=== PATIENT | male | born 1985 | race Caucasian/White ===

== ENCOUNTER 2017-07-23 03:43 | Emergency (ER) | payer MEDICAID ==
[~2017-07-23] VITALS: Ht 170.2 cm; Wt 97.5 kg
[~2017-07-23 03:43] MED LIST: CIPR500T4 PO; IBUP-1542 PO; IBUP1TAB14
[2017-07-23 03:47] VITALS: Ht 170.2 cm; Wt 97.5 kg
[2017-07-23] MEDS ORDERED: SOD CHLORIDE 0.9% 500 ML IV STA (04:28)
[2017-07-23] MEDS ORDERED: morphine 4 MG/ML VIAL IV STA (04:28)
[2017-07-23] MEDS ORDERED: ONDANSETRON 4 MG INJ IV STA (04:28)
[2017-07-23 04:57] LABS: BASOPHILS % 0.3 % (0.0-2.0); EOSINOPHILS # 0.1 10^3/ul (0.0-0.5); EOSINOPHILS % 0.6 % (0.0-7.0); HEMATOCRIT 44.5 % (42.0-52.0); HEMOGLOBIN 15.2 g/dl (14.0-18.0); LYMPHOCYTES # 1.7 10^3/ul (0.8-2.9); LYMPHOCYTES % 18.9 % (15.0-51.0); MEAN CORPUSCULAR HEMOGLOBIN 27.7 pg (29.0-33.0); MEAN CORPUSCULAR HGB CONC 34.2 g/dl (32.0-37.0); MEAN CORPUSCULAR VOLUME 81.2 fl (82.0-101.0); MEAN PLATELET VOLUME 10.5 fl (7.4-10.4); MONOCYTE # 0.5 10^3/ul (0.3-0.9); MONOCYTES % 5.8 % (0.0-11.0); NEUTROPHILS % 73.9 % (39.0-77.0); PLATELET COUNT 200 10^3/UL (140-415); RED BLOOD COUNT 5.48 10^6/ul (4.70-6.10); RED CELL DISTRIBUTION WIDTH 13.2 % (11.5-14.5); WHITE BLOOD COUNT 8.8 10^3/ul (4.8-10.8)
[2017-07-23 05:13] LABS: ALBUMIN 4.3 g/dl (3.3-4.9); ALBUMIN/GLOBULIN RATIO 1.48; BILIRUBIN,INDIRECT 0.6 mg/dl (0-1.1); BILIRUBIN,TOTAL 0.6 mg/dl (0.2-1.3); CALCIUM 10.5 mg/dl (8.4-10.2); CREATININE 0.98 mg/dl (0.61-1.24); POTASSIUM 4.3 mmol/L (3.5-5.1); TOTAL PROTEIN 7.2 g/dl (6.1-8.1)
--- NOTE | 2017-07-23 05:18 | RADRPT ---
PROCEDURE: CT Abdomen and pelvis without contrast. CLINICAL INDICATION: Abdominal pain. TECHNIQUE: CT scan of the abdomen and pelvis was performed on a multi-detector high-resolution CT scanner. Contiguous axial images were obtained from the lung bases to the ischial tuberosities wit hout intravenous contrast. Coronal and sagittal reformatted images were also obtained. Images were reviewed on the PACS workstation. One or more of the following dose reduction techniques were used: - Automated exposure control. - Adjustment of the mA and/or kV according to patient size. - Use of iterative reconstruction technique. Exam CTD/vol = 21.31 mGy. Total exam DLP = 1386.51 mGy-cm. COMPARISON: None. FINDINGS: Evaluation of the lung bases demonstrates no pleural or parenchymal disease. Abdomen: The liver is normal in size and diffusely low in attenuation consistent with fatty infiltr ation. There is no focal mass or dilatation of the biliary tree. The gallbladder is not distended. The spleen, pancreas and bilateral adrenal glands are within normal limits. Bilateral kidneys are normal in size with no contour deforming mass identified. There is no radiopaque renal or ureteral calculus identified. There is no hydronephrosis or hydroureter. There is no retroperitoneal adeno mack. The abdominal aorta is of normal caliber. There is a tiny umbilical hernia containing fat. There is no bowel obstruction or free air. A norm al appendix is identified. There is no diverticulosis or diverticulitis. There is no ascites. Pelvis: The bladder is unremarkable. The prostate and seminal vesicles are within normal limits. There is no significant pelvic adenopathy or free fluid. Evaluation of the osseous structures demonstrates no suspicious lytic or blastic lesion. IMPRESSION: No acute abnormality identified within the abdomen and pelvis. Fatty infiltration of the liver. .Daniel Saldivar MD, MD Date Time Electronically viewed and signed by .Daniel Saldivar MD, MD on 07/23/2017 05:18 .T/
--- NOTE | 2017-07-23 05:20 | RADRPT ---
PROCEDURE: XR Chest. CLINICAL INDICATION: Abdominal pain TECHNIQUE: A single AP view of the chest was obtained. COMPARISON: None. FINDINGS: No focal airspace opacification, pleural effusion or pneumothorax is seen. The cardiomediastinal si lhouette is within normal limits for size. The osseous structures are unremarkable. IMPRESSION: Unremarkable chest x-ray. RPTAT: HH .Jayne Perez MD, MD Date Time Electronically viewed and signed by .Jayne Perez MD, on 07/23/2017 05:19 .G/
[2017-07-23 05:30] VITALS: BP 164/89; PULSE 82; RESP 16; TEMP 97.9
[2017-07-23 05:33] LABS: ADD UMIC NO; UR AMORPHOUS CRYSTAL FEW /HPF (NONE SEEN); UR ASCORBIC ACID 20 mg/dL (NEGATIVE); UR BILIRUBIN (Dip) NEGATIVE (NEGATIVE); UR BLOOD (Dip) NEGATIVE (NEGATIVE); UR CLARITY SLIGHTLY CLOUDY (CLEAR); UR COLOR YELLOW (YELLOW); UR GLUCOSE (Dip) NEGATIVE (NEGATIVE); UR KETONES (Dip) NEGATIVE (NEGATIVE); UR LEUKOCYTE ESTERASE (Dip) NEGATIVE Leu/ul (NEGATIVE); UR NITRITE (Dip) NEGATIVE (NEGATIVE); UR RBC 3 /HPF (0-5); UR SPECIFIC GRAVITY (Dip) 1.014 (1.003-1.030); UR TOTAL PROTEIN (Dip) NEGATIVE (NEGATIVE); UR UROBILINOGEN (Dip) NEGATIVE (NEGATIVE)
[2017-07-23] MEDS ORDERED: HYDR-902 PO (05:53)
[2017-07-23] MEDS ORDERED: ONDA4TAB14 PO (05:53)
--- NOTE | 2017-07-23 05:57 | ERD ---
ER Documentation Chief Complaint Date/Time DATE: 07/23/17 TIME: 05:56 Chief Complaint abd pain x 2 days. -n/v/d HPI This is a 33 mL abdominal pain for the last 2 days. No nausea vomiting or diarrhea. Pain is colicky nature no exacerbating or alleviating factors. No other current complaints ROS All systems reviewed and are negative except as per history of present illness. Medications Home Meds Active Scripts Ondansetron (Ondansetron Odt) 4 Mg Tab.rapdis, 4 MG PO Q6H Y for NAUSEA AND/OR VOMITING, #10 TAB Prov:DEA LILLY 07/23/17 Hydrocodone/Acetaminophen ([place] 10-325 Tablet) 1 Each Tablet, 1 TAB PO Q6H Y for PAIN, #20 TAB Prov:DEA LILLY. 07/23/17 Ciprofloxacin Hcl* (Ciprofloxacin Hcl*) 500 Mg Tablet, 500 MG PO BID for 10 Days , TAB Prov:JUAN R LANDIS MD 06/30/16 Ibuprofen* (Motrin*) 600 Mg Tab, 600 MG PO Q6, #20 TAB Prov:JUA NR LANDIS MD 06/30/16 Reported Medications Ibuprofen/Diphenhydramine (Advil Pm Caplet) 1 Tab Tablet 04/14/12 Allergies Allergies: Coded Allergies: No Known Allergy (Unverified , 07/23/17) PMhx/Soc History of Surgery: No Anesthesia Reaction: No Hx Neurological Disorder: No Hx Respiratory Disorders: No Hx Cardiac Disorders: No Hx Psychiatric Problems: No Hx Miscellaneous Medical Probl: No Hx Alcohol Use: No Hx Substance Use: No Hx Tobacco Use: No Physical Exam Vitals Vital Signs Date Time Temp Pulse Resp B/P Pulse Ox O2 Delivery O2 Flow Rate FiO2 07/23/17 03:47 97.5 75 20 175/86 96 Physical Exam Const: [] Head: Atraumatic Eyes: Normal Conjunctiva ENT: Normal External Ears, Nose and Mouth. Neck: Full range of motion..~ No meningismus. Resp: Clear to auscultation bilaterally Cardio: Regular rate and rhythm, no murmurs Abd: Soft, non tender, non distended. Normal bowel sounds Skin: No petechiae or rashes Back: No midline or flank tenderness Ext: No cyanosis, or edema Neur: Awake and alert Psych: Normal Mood and Affect Result Diagram: 07/23/17 0445 07/23/17 0445 Results 24 hrs Laboratory Tests Test 07/23/17 04:40 07/23/17 04:45 Urine Color YELLOW Urine Clarity SLIGHTLY CLOUDY Urine pH 7.0 Urine Specific [place] 1.014 Urine Ketones NEGATIVEmg/dL Urine Nitrite NEGATIVEmg/dL Urine Bilirubin NEGATIVEmg/dL Urine Urobilinogen NEGATIVEmg/dL Urine Leukocyte Esterase NEGATIVELeu/ul Urine Microscopic RBC 3/HPF Urine Microscopic WBC 0/HPF Urine Amorphous Crystals FEW/HPF Urine Hemoglobin NEGATIVEmg/dL Urine Glucose NEGATIVEmg/dL Urine Total Protein NEGATIVEmg/dl White Blood Count 8.810^3/ul Red Blood Count 5.4810^6/ul Hemoglobin 15.2g/dl Hematocrit 44.5% Mean Corpuscular Volume 81.2fl Mean Corpuscular Hemoglobin 27.7pg Mean Corpuscular Hemoglobin Concent 34.2g/dl Red Cell Distribution Width 13.2% Platelet Count 84360^3/UL Mean Platelet Volume 10.5fl Neutrophils % 73.9% Lymphocytes % 18.9% Monocytes % 5.8% Eosinophils % 0.6% Basophils % 0.3% Nucleated Red Blood Cells % 0.0/100WBC Neutrophils # (Manual) 6.510^3/ul Lymphocytes # 1.710^3/ul Monocytes # 0.510^3/ul Eosinophils # 0.110^3/ul Basophils # 0.010^3/ul Nucleated Red Blood Cells # 0.010^3/ul Sodium Level 140mmol/L Potassium Level 4.3mmol/L Chloride Level 104mmol/L Carbon Dioxide Level 30mmol/L Anion Gap 10 Blood Urea Nitrogen 14mg/dl Creatinine 0.98mg/dl Glucose Level 131mg/dl Calcium Level 10.5mg/dl Total Bilirubin 0.6mg/dl Direct Bilirubin 0.00mg/dl Indirect Bilirubin 0.6mg/dl Aspartate Amino Transf (AST/SGOT) 79IU/L Alanine Aminotransferase (ALT/SGPT) 160IU/L Alkaline Phosphatase 95IU/L Total Protein 7.2g/dl Albumin 4.3g/dl Globulin 2.90g/dl Albumin/Globulin Ratio 1.48 Lipase 48U/L Current Medications Medications (Trade) Dose Ordered Sig/Nabeel Route PRN Reason Start Time Stop Time Status Last Admin Dose Admin Sodium Chloride (NS) 500 ml @ 500 mls/hr Q1H STAT IV 07/23/17 04:28 07/23/17 05:27 DC 07/23/17 04:53 Morphine Sulfate (morphine) 4 mg ONCE STAT IV 07/23/17 04:28 07/23/17 04:29 DC 07/23/17 04:53 Ondansetron HCl (Zofran Inj) 4 mg ONCE STAT IV 07/23/17 04:28 07/23/17 04:29 DC 07/23/17 04:53 Procedures/MDM Medical decision-makin of abdominal pain of undifferentiated etiology. At this point clinically stable. Discharge home with pain meds. Tolerating p.o. Follow-up in 8 hours for serial abdominal exams. No evidence of surgical abdomen. Departure Diagnosis: Primary Impression: Abdominal pain Abdominal location: generalized Qualified Code: R10.84 - Generalized abdominal pain Condition: Stable Patient Instructions: Abdominal Pain DEA LILLY Jul 23, 2017 05:57
[2017-07-24] MEDS ORDERED: HYDR-906 PO (12:08)
== END 2017-07-23 06:40 | disposition home or self-care (01) ==
LOC: E/R 03:43
DX: R10.84 Generalized abdominal pain (principal)
CPT/HCPCS: 36415; 71010; 74176; 80053; 81001; 83690; 85025; 96374; 96375; J2270; J2405; J7040; Z7502; 81003

== ENCOUNTER 2017-07-24 08:56 | Emergency (ER) | payer MEDICAID ==
[~2017-07-24] VITALS: Ht 167.6 cm; Wt 96.5 kg
[~2017-07-24 08:56] MED LIST changes: +HYDR-902 PO; +ONDA4TAB14 PO
[2017-07-24 09:12] VITALS: Ht 167.6 cm; Wt 96.5 kg
[2017-07-24] MEDS ORDERED: morphine 4 MG/ML VIAL IV STA (10:22)
[2017-07-24] MEDS ORDERED: ONDANSETRON 4 MG INJ IV STA (10:22)
[2017-07-24] MEDS ORDERED: KETOROLAC 15 MG INJ IV STA (10:22)
[2017-07-24] MEDS ORDERED: SOD CHLORIDE 0.9% 1,000 ML IV STA (10:22)
--- NOTE | 2017-07-24 10:45 | ERD ---
ER Documentation Chief Complaint Date/Time DATE: 07/24/17 TIME: 10:44 Chief Complaint RLQ ABD PAIN SINCE SUNDAY W/ NAUSEA & VOMITING HPI This is a 32-year-old male presenting to the ER for the second time for the same complaint in this past week complaining of right lower quadrant abdominal pain, nausea and nonbloody nonbilious vomiting. Patient denies any fevers, diarrhea, constipation. He states that he has been taking Zofran without any relief. ROS All systems reviewed and are negative except as per history of present illness. Medications Home Meds Active Scripts Hydrocodone/Acetaminophen ([place] 5-325 Tablet) 1 Each Tablet, 1 TAB PO Q6H Y for PAIN, #7 TAB Prov:RENEE HOFFMAN PA-C 07/24/17 Ondansetron (Ondansetron Odt) 4 Mg Tab.rapdis, 4 MG PO Q6H Y for NAUSEA AND/OR VOMITING, #10 TAB Prov:DEA LILLY S. 07/23/17 Hydrocodone/Acetaminophen ([place] 10-325 Tablet) 1 Each Tablet, 1 TAB PO Q6H Y for PAIN, #20 TAB Prov:YAMILE LILLYEL S. 07/23/17 Ciprofloxacin Hcl* (Ciprofloxacin Hcl*) 500 Mg Tablet, 500 MG PO BID for 10 Days , TAB Prov:JUAN R LANDIS MD 06/30/16 Ibuprofen* (Motrin*) 600 Mg Tab, 600 MG PO Q6, #20 TAB Prov:JUAN R LANDIS MD 06/30/16 Reported Medications Ibuprofen/Diphenhydramine (Advil Pm Caplet) 1 Tab Tablet 04/14/12 Allergies Allergies: Coded Allergies: No Known Allergy (Unverified , 07/23/17) PMhx/Soc History of Surgery: Yes (HERNIA X 5YEARS) Anesthesia Reaction: No Hx Neurological Disorder: No Hx Respiratory Disorders: No Hx Cardiac Disorders: No Hx Psychiatric Problems: No Hx Miscellaneous Medical Probl: No Hx Alcohol Use: No Hx Substance Use: Yes (marijuana) Hx Tobacco Use: No Physical Exam Vitals Vital Signs Date Time Temp Pulse Resp B/P Pulse Ox O2 Delivery O2 Flow Rate FiO2 07/24/17 09:12 97.8 75 16 184/92 99 Physical Exam GENERAL: well-developed/well-nourished, in no apparent distress, non-toxic appearing HENT: NC/AT, moist mucous membranes EYES: Conjunctiva normal NECK: Supple, no lymphadenopathy PULM: CTA bilaterally, no rales, rhonchi, or wheezing heard CV: Normal S1S2, RRR, good capillary refill GI: Soft, non-distended, tender to palpation right lower quadrant Normal bowel sounds, no masses or organomegaly felt on exam No gross peritonitis, no bruits Negative Rovsing, negative Vincent, negative McBurney's point, Negative CVAT BACK: No masses EXT: No clubbing, cyanosis, or edema NEURO: Alert and Orientated SKIN: Intact, normal turgor PSYCH: Normal mood and mentation Result Diagram: 07/24/17 1058 07/24/17 1058 Results 24 hrs Laboratory Tests Test 07/24/17 10:58 White Blood Count 9.910^3/ul Red Blood Count 5.5410^6/ul Hemoglobin 15.3g/dl Hematocrit 44.9% Mean Corpuscular Volume 81.0fl Mean Corpuscular Hemoglobin 27.6pg Mean Corpuscular Hemoglobin Concent 34.1g/dl Red Cell Distribution Width 13.1% Platelet Count 19841^3/UL Mean Platelet Volume 9.9fl Neutrophils % 80.4% Lymphocytes % 14.1% Monocytes % 4.7% Eosinophils % 0.1% Basophils % 0.3% Nucleated Red Blood Cells % 0.0/100WBC Neutrophils # (Manual) 8.010^3/ul Lymphocytes # 1.410^3/ul Monocytes # 0.510^3/ul Eosinophils # 0.010^3/ul Basophils # 0.010^3/ul Nucleated Red Blood Cells # 0.010^3/ul Sodium Level 137mmol/L Potassium Level 3.6mmol/L Chloride Level 102mmol/L Carbon Dioxide Level 28mmol/L Anion Gap 11 Blood Urea Nitrogen 16mg/dl Creatinine 0.95mg/dl Glucose Level 123mg/dl Calcium Level 9.7mg/dl Total Bilirubin 0.7mg/dl Direct Bilirubin 0.00mg/dl Indirect Bilirubin 0.7mg/dl Aspartate Amino Transf (AST/SGOT) 64IU/L Alanine Aminotransferase (ALT/SGPT) 148IU/L Alkaline Phosphatase 100IU/L Total Protein 7.4g/dl Albumin 4.4g/dl Globulin 3.00g/dl Albumin/Globulin Ratio 1.46 Lipase 53U/L Current Medications Medications (Trade) Dose Ordered Sig/Nabeel Route PRN Reason Start Time Stop Time Status Last Admin Dose Admin Sodium Chloride (NS) 1,000 ml @ 1,000 mls/hr Q1H STAT IV 07/24/17 10:22 07/24/17 11:21 DC 07/24/17 11:07 Morphine Sulfate (morphine) 4 mg ONCE STAT IV 07/24/17 10:22 07/24/17 10:24 DC 07/24/17 11:28 Ondansetron HCl (Zofran Inj) 4 mg ONCE STAT IV 07/24/17 10:22 07/24/17 10:24 DC 07/24/17 11:05 Ketorolac Tromethamine (Toradol) 15 mg ONCE STAT IV 07/24/17 10:22 07/24/17 10:24 DC 07/24/17 11:06 IV Flush 10 ml 10 ml STK-MED ONCE .ROUTE 07/24/17 11:10 07/24/17 11:11 DC Sodium Chloride (NS) 100 ml @ ud STK-MED ONCE .ROUTE 07/24/17 11:10 07/24/17 11:11 DC Iohexol (Omnipaque 300mg/ ml) 150 ml STK-MED ONCE .ROUTE 07/24/17 11:10 07/24/17 11:11 DC Procedures/MDM 32-year-old male presents with right lower quadrant abdominal pain, nausea vomiting. Patient was evaluated at this facility on Sunday night, full work-up was normal. Patient presents with continuous pain therefore a repeat CT with contrast was done. It did not show any evidence of surgical abdomen. Radiologist stated: 1. Normal appendix. No evidence of gastrointestinal disease. Negative free air fluid abscesses or lymphadenopathy. 2. No calcified urinary calculi or obstructive uropathy. 3. Hepatic fatty infiltration. IV access established, patient was given a liter fluids with pain medication. Pain stabilized. CBC did not show any evidence of leukocytosis or anemia. CMP did not show any evidence of renal or electrolyte abnormalities, patient had elevated transaminases. Discussed to follow with primary care physician. He understands and agrees with this plan Departure Diagnosis: Primary Impression: Abdominal pain Additional Impression: Vomiting Condition: Stable RENEE HOFFMAN PA-C Jul 24, 2017 10:45
[2017-07-24] MEDS ORDERED: IOHEXOL 300MG/ML 150 ML BTL ONE (11:10)
[2017-07-24] MEDS ORDERED: SOD CHLORIDE 0.9% 100 ML ONE (11:10)
[2017-07-24 11:14] LABS: BASOPHILS % 0.3 % (0.0-2.0); EOSINOPHILS % 0.1 % (0.0-7.0); HEMATOCRIT 44.9 % (42.0-52.0); HEMOGLOBIN 15.3 g/dl (14.0-18.0); LYMPHOCYTES # 1.4 10^3/ul (0.8-2.9); LYMPHOCYTES % 14.1 % (15.0-51.0); MEAN CORPUSCULAR HEMOGLOBIN 27.6 pg (29.0-33.0); MEAN CORPUSCULAR HGB CONC 34.1 g/dl (32.0-37.0); MEAN PLATELET VOLUME 9.9 fl (7.4-10.4); MONOCYTE # 0.5 10^3/ul (0.3-0.9); MONOCYTES % 4.7 % (0.0-11.0); NEUTROPHILS % 80.4 % (39.0-77.0); PLATELET COUNT 224 10^3/UL (140-415); RED BLOOD COUNT 5.54 10^6/ul (4.70-6.10); RED CELL DISTRIBUTION WIDTH 13.1 % (11.5-14.5); WHITE BLOOD COUNT 9.9 10^3/ul (4.8-10.8)
[2017-07-24 11:30] LABS: ALBUMIN 4.4 g/dl (3.3-4.9); ALBUMIN/GLOBULIN RATIO 1.46; BILIRUBIN,INDIRECT 0.7 mg/dl (0-1.1); BILIRUBIN,TOTAL 0.7 mg/dl (0.2-1.3); CALCIUM 9.7 mg/dl (8.4-10.2); CREATININE 0.95 mg/dl (0.61-1.24); POTASSIUM 3.6 mmol/L (3.5-5.1); TOTAL PROTEIN 7.4 g/dl (6.1-8.1)
--- NOTE | 2017-07-24 12:00 | RADRPT ---
PROCEDURE: CT Abdomen and pelvis with contrast. CLINICAL INDICATION: Right lower quadrant abdominal pain. TECHNIQUE: CT scan of the abdomen and pelvis with contrast was performed on a multidetector high-r esolution CT scan. The patient was scanned following the uncomplicated intravenous administration o f 100 ml Omnipaque-300. Coronal and sagittal reformatted images were obtained from the axial source images. Standard CT of the abdomen pelvis with contrast protocols were performed. The total exam CTDI equals 19.94 mGy and the total exam DLP equals 1287.01 mGy-cm. One or more of the following dose reduction techniques were used: - Automated exposure control. - Adjustment of the mA and/or kV according to patient size. Use of iterative reconstruction technique. COMPARISON: CT abdomen pelvis of 07/23/2017 FINDINGS: The appendix is normal. The stomach, small bowel and large bowel are unremarkable. Negative intra-ab dominal free air, free fluid, abscesses or lymphadenopathy. The kidneys are normal in size without calcified renal calculi, hydronephrosis or intra renal masses bilaterally. The urinary bladder is unremarkable. Prostate unremarkable. The liver is normal in size with diffuse hepatic fatty infiltration. No focal hepatic lesions. The s pleen pancreas adrenal glands and gallbladder are unremarkable. No evidence of biliary ductal dilati on. The lung bases are unremarkable. Again noted is a tiny fat containing umbilical hernia without herni ated hour strangulation. Small bilateral inguinal fat-containing hernia is without herniated bowel o r strangulation. Mild degenerative changes lower thoracic and lumbar spine but no acute osseous findings or osteoblas tic/osteolytic lesions. IMPRESSION: 1. Normal appendix. No evidence of gastrointestinal disease. Negative free air fluid abscesses or l ymphadenopathy. 2. No calcified urinary calculi or obstructive uropathy. 3. Hepatic fatty infiltration. RPTAT:AAJJ Physician Walter Date Time Electronically viewed and signed by Physician Walter on 07/24/2017 12:00 BM/
[2017-07-24] MEDS ORDERED: HYDR-906 PO (12:08)
[2017-07-24 12:27] VITALS: BP 166/99; PULSE 88; RESP 18
== END 2017-07-24 12:30 | disposition home or self-care (01) ==
LOC: FTE 08:56
DX: R10.31 Right lower quadrant pain (principal); R11.2 Nausea with vomiting, unspecified
CPT/HCPCS: 36415; 74177; 80053; 83690; 85025; 96374; 96375; J1885; J2270; J2405; J7030; Q9967; Z7502; Z7610